=== PATIENT | female | born 2000 | race African-American/Black ===

== ENCOUNTER 2021-03-16 16:05 | Observation (INO) | payer OTHER ==
[2021-03-16] MEDS ORDERED: Ketamine 50 MG/ML (10ML VIAL) ONE (16:28)
[2021-03-16] MEDS ORDERED: Ondansetron PF 4 MG/2 ML Vial ONE (16:35)
[2021-03-16] MEDS ORDERED: Morphine 4 MG/ML VIAL ONE (18:32)
[2021-03-16] MEDS ORDERED: Ketorolac Tromethamine 30 MG/ML VIAL IVP SCH (19:24)
[2021-03-16] MEDS ORDERED: Cyclobenzaprine 10 MG TAB PO PRN (19:24)
[2021-03-16] MEDS ORDERED: Ondansetron ODT 4 MG TAB PO PRN (19:24)
[2021-03-16] MEDS ORDERED: Dextrose 5% in Water 1,000 ML IV PRN (19:24)
[2021-03-16] MEDS ORDERED: traMADol HCl 50 MG TAB PO PRN (19:24)
[2021-03-16] MEDS ORDERED: Dextrose 50% Abboject 50 ML SYRINGE SLOW IVP PRN (19:24)
[2021-03-16] MEDS ORDERED: hydrALAZINE 20 MG/ML VIAL SLOW IVP PRN (19:24)
[2021-03-16] MEDS ORDERED: Ondansetron PF 4 MG/2 ML Vial IVP PRN (19:24)
[2021-03-16] MEDS ORDERED: Morphine 4 MG/ML VIAL SLOW IVP PRN (19:48)
[2021-03-16] MEDS ORDERED: Ibuprofen 200 MG TAB PO PRN (19:52)
[2021-03-16] MEDS: Acetaminophen 500 MG TAB PO SCH (20:05)
[2021-03-16] MEDS ORDERED: Famotidine 20 MG TAB PO SCH (21:00)
[2021-03-16 22:11] VITALS: BMI 18.6
[2021-03-16] MEDS ORDERED: Sodium Chloride 0.9% 1,000 ML IV SCH (23:55)
[2021-03-17 03:14] LABS: SARS-CoV-2 NAA Rapid Test Not Detected (NotDetected)
[2021-03-17] MEDS: Acetaminophen 500 MG TAB PO SCH ×2 (03:24→14:40)
[2021-03-17] MEDS: traMADol HCl 50 MG TAB PO PRN ×2 (04:31→14:41)
[2021-03-17 06:05] LABS: #Basophils 0.1 thou/uL (0.0-0.2); #Eosinphils 0.1 thou/uL (0.0-0.7); #Lymphocytes 2.8 thou/uL (1.20-3.40); #Monocytes 0.9 thou/uL (0.11-0.59); #Neutrophils 5.5 thou/uL (1.40-6.50); %Basophils 0.6 % (0.0-1.0); %Eosinophils 1.1 % (0.0-10.0); %Lymphocytes 29.5 % (28.0-48.0); %Monocytes 9.9 % (0.0-4.0); %Neutrophils 58.8 % (31.0-61.0); Hemoglobin 11.6 g/dL (12.0-16.0); Mean Corpuscular HGB CONC 32.9 g/dL (32.0-36.0); Mean Corpuscular Hemoglobin 30.2 pg (25.0-35.0); Mean Corpuscular Volume 91.8 fL (78.0-98.0); Mean Platelet Volume 7.4 fL (7.4-10.4); Platelet Count 248 thou/uL (130-400); RBC Distribution Width 11.8 % (11.5-14.5); Red Blood Cell (RBC) Count 3.86 mill/uL (4.00-5.20); White Blood Cell (WBC) Count 9.3 thou/uL (4.8-10.8)
[2021-03-17 06:39] LABS: Anion Gap 10 mmol/L (10-20); BUN (Urea Nitrogen) 6 mg/dL (7.0-18.7); Calc. Creatinine Clearance 116 mL/min (70-130); Calcium 8.8 mg/dL (7.8-10.44); Carbon Dioxide 21 mmol/L (22-29); Chloride 109 mmol/L (98-107); Glucose 83 mg/dL (70-105); Potassium 3.8 mmol/L (3.5-5.1); Sodium 136 mmol/L (136-145)
[2021-03-17 06:49] LABS: BHCG - Serum Negative (NEGATIVE); Pregs Control Background? CLEAR/WHITE (CLR/WHITE); Pregs Control Bar Appear? YES (CONTROL BAR)
[2021-03-17] MEDS ORDERED: EPINEPHrine 1 MG/ML AMP ONE (08:56)
[2021-03-17] MEDS ORDERED: Bupivacaine 0.25% HCL 30 ML VIAL ONE (08:56)
[2021-03-17] MEDS ORDERED: ceFAZolin 2 GM/DEX 5% 100 ML BAG ONE (09:09)
[2021-03-17] MEDS ORDERED: Glycopyrrolate 0.2 MG/ML 5 ML SYRINGE ONE (09:15)
[2021-03-17] MEDS ORDERED: PROPOFOL 200 MG/20 ML VIAL ONE (09:15)
[2021-03-17] MEDS ORDERED: Ondansetron PF 4 MG/2 ML Vial ONE (09:15)
[2021-03-17] MEDS ORDERED: Ketorolac Tromethamine 30 MG/ML VIAL ONE (09:15)
[2021-03-17] MEDS ORDERED: PHENYLEPHRINE-NS 100 MCG/ML 10 ML SYRINGE ONE (09:15)
[2021-03-17] MEDS ORDERED: Lidocaine 1% PF 5 ML VIAL ONE (09:15)
[2021-03-17] MEDS ORDERED: Dexamethasone 20 MG/5 ML VIAL ONE (09:15)
[2021-03-17] MEDS ORDERED: Midazolam HCl 2 mg/2 ml Vial ONE (09:20)
[2021-03-17] MEDS ORDERED: Fentanyl 100 MCG/2 ML VIAL ONE (09:20)
[2021-03-17] MEDS ORDERED: Scopolamine 1.5 mg/72 hour Patch ONE (09:21)
[2021-03-17 12:34] VITALS: TEMP 97.9
[2021-03-17 15:30] VITALS: BP 109/68
[2021-03-19] MEDS ORDERED: FLU VACC QS2021-22(6MOS UP)/PF 60 MCG/0.5 ML SYRINGE IM ONE (09:00)
== END 2021-03-17 15:15 | disposition home or self-care (01) ==
LOC: ERS 16:05 → SJJU 17:28
PROVIDERS: ADMIT Surgery; ATTEND Surgery
PROC: 0PSH04Z Reposition Right Radius with Internal Fixation Device, Open Approach (ICD-10-PCS; principal; 2021-03-17)
PROC: 0PSK04Z Reposition Right Ulna with Internal Fixation Device, Open Approach (ICD-10-PCS; 2021-03-17)
DX: S52.321A Displaced transverse fracture of shaft of right radius, initial encounter for closed fracture (principal); S52.221A Displaced transverse fracture of shaft of right ulna, initial encounter for closed fracture; G89.11 Acute pain due to trauma; Z20.822 Contact with and (suspected) exposure to COVID-19; V43.52XA Car driver injured in collision with other type car in traffic accident, initial encounter
CPT/HCPCS: 25565; 36415; 76000; 80048; 84703; 85025; 96374; 96375; 99156; 99157; C1713; G0378; G0390; J0171; J1100; J1885; J2250; J2270; J2405; J2704; J3010; J7050; S0020; U0002